=== PATIENT | male | born 1985 | race American Indian/Alaskan Native ===

== ENCOUNTER 2019-05-21 11:37 | Emergency (ER) | payer SELFPAY ==
[2019-05-21 12:17] VITALS: BP 149/80
--- NOTE | 2019-05-21 12:17 | Event Note ---
ED Screening Note Date of service: 05/21/19 Time: 12:15 ED Screening Note: Pt complains generalized abdominal pain and nausea and vomiting x today reports started after eating out this morning denies hematemesis/coffee ground emesis or diarrhea This initial assessment/diagnostic orders/clinical plan/treatment(s) is/are subject to change based on patients health status, clinical progression and re- assessment by fellow clinical providers in the ED. Further treatment and workup at subsequent clinical providers discretion. Patient/guardian urged not to elope from the ED as their condition may be serious if not clinically assessed and managed. Initial orders include: labs
[2019-05-21 13:43] LABS: Hematocrit 41.5 % (35.5-45.6); Hemoglobin 14.4 gm/dl (11.8-15.2); Mean Corpuscular HGB Conc 35 % (32-34); Mean Corpuscular Volume 100 fl (84-94); Platelet Count 247 K/mm3 (140-440); Red Blood Count 4.14 M/mm3 (3.65-5.03); Red Cell Distribution Width 12.9 % (13.2-15.2)
[2019-05-21 13:45] LABS: Bilirubin,Urine NEG (Negative); Blood,Urine NEG (Negative); Color,Urine Yellow (Yellow); Protein,Urine <15 mg/dL mg/dL (Negative); Urobilinogen,Urine < 2.0 mg/dL (<2.0)
[2019-05-21 14:11] LABS: Alanine Aminotransferase 19 units/L (7-56); Albumin 4.6 g/dL (3.9-5); BUN/Creatinine Ratio 18; Blood Urea Nitrogen 16 mg/dL (9-20); Calcium 9.5 mg/dL (8.4-10.2); Hemolysis Index 26
[2019-05-21 14:30] LABS: Band Neutrophils # (Manual) 0.1 K/mm3; Basophils % (Manual) 0 % (0.0-1.8); Platelet Estimate Consistent w Auto; RBC Morphology Normal; Total Cells Counted 100
--- NOTE | 2019-05-21 14:54 | Emergency Department Report ---
Vomiting/Diarrhea - [facility] Chief Complaint: Nausea/Vomiting/Diarrhea Stated Complaint: POSS FOOD POISONING Time Seen by Provider: 05/21/19 12:14 Duration: Today Nausea/Vomiting Severity: Mild Diarrhea Severity: None Pain Severity: None Symptoms: Yes Able to Tolerate Fluids, Yes Recent Unusual Foods, Yes Family w/ Similar Symptoms, No Watery Diarrhea, No Bloody diarrhea, No Fever, No Recent Untreated Water, No Recent use of Antibiotics, No Contacts w/ Similar Symptoms, No Rash, No Hematuria, No Recent URI Symptoms Other History: This is a 33-year-old male presents the ED complaining of abdominal discomfort and vomiting that began shortly after noticing a tejada in his food while he was at a restaurant. Patient states that abdominal cramping is resolved now as well as vomiting. Patient states he still feels a little queasy otherwise no fever no chills no diarrhea no shortness of breath no chest pain ED Review of Systems ROS: Stated complaint: POSS FOOD POISONING Other details as noted in HPI Comment: All other systems reviewed and negative ED Past Medical Hx - Past Medical History Previous Medical History?: No - Surgical History Past Surgical History?: No - Social History Smoking Status: Current Every Day Smoker Substance Use Type: Alcohol - Medications Home Medications: Home Medications Medication Instructions Recorded Confirmed Last Taken Type Ondansetron [Zofran Odt] 4 mg PO Q8HR #20 tab.rapdis 05/21/19 Unknown Rx Vomiting Diarrhea Exam - Exam General: Vital signs noted. No distress. Alert and acting appropriately. HEENT: Yes Moist Mucous Membranes, No Pharyngeal Erythema, No Pharyngeal Exudates, No Rhinorrhea, No Conjuctival Injection, No Frontal Tenderness, No Maxillary Tenderness Neck: No Adenopathy, No Rigidity Lungs: Yes Clear Lung Sounds, Yes Good Air Exchange, No Wheezes, No Stridor, No Cough, No Nasal Flaring, No Retractions, No Use of Accessory Muscles Heart exam: Regular: Yes, Murmur: No, Tachycardia: No Abdomen: Tenderness: No, Peritoneal Signs: No, Distention: No, Hyperactive Bowel sounds: No Skin exam: Rash: No, Edema: No, Normal turgor: Yes Neurologic: Alert and oriented, no deficits. Musculoskeletal: Unremarkable. ED Course Vital Signs 05/21/19 12:14 Temperature 98.9 F Pulse Rate 79 Respiratory 18 Rate Blood Pressure 149/80 O2 Sat by Pulse 99 Oximetry ED Medical Decision Making - Lab Data Result diagrams: 05/21/19 13:20 05/21/19 13:20 Laboratory Last Values WBC 4.0 K/mm3 (4.5-11.0) L 05/21/19 13:20 RBC 4.14 M/mm3 (3.65-5.03) 05/21/19 13:20 Hgb 14.4 gm/dl (11.8-15.2) 05/21/19 13:20 Hct 41.5 % (35.5-45.6) 05/21/19 13:20 MCV 100 fl (84-94) H 05/21/19 13:20 MCH 35 pg (28-32) H 05/21/19 13:20 MCHC 35 % (32-34) H 05/21/19 13:20 RDW 12.9 % (13.2-15.2) L 05/21/19 13:20 Plt Count 247 K/mm3 (140-440) 05/21/19 13:20 Add Manual Diff Complete 05/21/19 13:20 Total Counted 100 05/21/19 13:20 Seg Neuts % (Manual) 44.0 % (40.0-70.0) 05/21/19 13:20 Band Neutrophils % 2.0 % 05/21/19 13:20 Lymphocytes % (Manual) 42.0 % (13.4-35.0) H 05/21/19 13:20 Reactive Lymphs % (Man) 2.0 % 05/21/19 13:20 Monocytes % (Manual) 8.0 % (0.0-7.3) H 05/21/19 13:20 Eosinophils % (Manual) 2.0 % (0.0-4.3) 05/21/19 13:20 Basophils % (Manual) 0 % (0.0-1.8) 05/21/19 13:20 Metamyelocytes % 0 % 05/21/19 13:20 Myelocytes % 0 % 05/21/19 13:20 Promyelocytes % 0 % 05/21/19 13:20 Blast Cells % 0 % 05/21/19 13:20 Nucleated RBC % Not Reportable 05/21/19 13:20 Seg Neutrophils # Man 1.8 K/mm3 (1.8-7.7) 05/21/19 13:20 Band Neutrophils # 0.1 K/mm3 05/21/19 13:20 Lymphocytes # (Manual) 1.7 K/mm3 (1.2-5.4) 05/21/19 13:20 Abs React Lymphs (Man) 0.1 K/mm3 05/21/19 13:20 Monocytes # (Manual) 0.3 K/mm3 (0.0-0.8) 05/21/19 13:20 Eosinophils # (Manual) 0.1 K/mm3 (0.0-0.4) 05/21/19 13:20 Basophils # (Manual) 0.0 K/mm3 (0.0-0.1) 05/21/19 13:20 Metamyelocytes # 0.0 K/mm3 05/21/19 13:20 Myelocytes # 0.0 K/mm3 05/21/19 13:20 Promyelocytes # 0.0 K/mm3 05/21/19 13:20 Blast Cells # 0.0 K/mm3 05/21/19 13:20 WBC Morphology Not Reportable 05/21/19 13:20 Hypersegmented Neuts Not Reportable 05/21/19 13:20 Hyposegmented Neuts Not Reportable 05/21/19 13:20 Hypogranular Neuts Not Reportable 05/21/19 13:20 Smudge Cells Not Reportable 05/21/19 13:20 Toxic Granulation Not Reportable 05/21/19 13:20 Toxic Vacuolation Not Reportable 05/21/19 13:20 Dohle Bodies Not Reportable 05/21/19 13:20 Pelger-Huet Anomaly Not Reportable 05/21/19 13:20 Mauro Rods Not Reportable 05/21/19 13:20 Platelet Estimate Consistent w auto 05/21/19 13:20 Clumped Platelets Not Reportable 05/21/19 13:20 Plt Clumps, EDTA Not Reportable 05/21/19 13:20 Large Platelets Not Reportable 05/21/19 13:20 Giant Platelets Not Reportable 05/21/19 13:20 Platelet Satelliting Not Reportable 05/21/19 13:20 Plt Morphology Comment Not Reportable 05/21/19 13:20 RBC Morphology Normal 05/21/19 13:20 Dimorphic RBCs Not Reportable 05/21/19 13:20 Polychromasia Not Reportable 05/21/19 13:20 Hypochromasia Not Reportable 05/21/19 13:20 Poikilocytosis Not Reportable 05/21/19 13:20 Anisocytosis Not Reportable 05/21/19 13:20 Microcytosis Not Reportable 05/21/19 13:20 Macrocytosis Not Reportable 05/21/19 13:20 Spherocytes Not Reportable 05/21/19 13:20 Pappenheimer Bodies Not Reportable 05/21/19 13:20 Sickle Cells Not Reportable 05/21/19 13:20 Target Cells Not Reportable 05/21/19 13:20 Tear Drop Cells Not Reportable 05/21/19 13:20 Ovalocytes Not Reportable 05/21/19 13:20 Helmet Cells Not Reportable 05/21/19 13:20 Vieyra-Entiat Bodies Not Reportable 05/21/19 13:20 [place] Rings Not Reportable 05/21/19 13:20 Vaiden Cells Not Reportable 05/21/19 13:20 Bite Cells Not Reportable 05/21/19 13:20 Crenated Cell Not Reportable 05/21/19 13:20 Elliptocytes Not Reportable 05/21/19 13:20 Acanthocytes (Spur) Not Reportable 05/21/19 13:20 Rouleaux Not Reportable 05/21/19 13:20 Hemoglobin C Crystals Not Reportable 05/21/19 13:20 Schistocytes Not Reportable 05/21/19 13:20 Malaria parasites Not Reportable 05/21/19 13:20 Marvin Bodies Not Reportable 05/21/19 13:20 Hem Pathologist Commnt No 05/21/19 13:20 Sodium 140 mmol/L (137-145) 05/21/19 13:20 Potassium 4.4 mmol/L (3.6-5.0) 05/21/19 13:20 Chloride 103.1 mmol/L (98-107) 05/21/19 13:20 Carbon Dioxide 22 mmol/L (22-30) 05/21/19 13:20 Anion Gap 19 mmol/L 05/21/19 13:20 BUN 16 mg/dL (9-20) 05/21/19 13:20 Creatinine 0.9 mg/dL (0.8-1.5) 05/21/19 13:20 Estimated GFR > 60 ml/min 05/21/19 13:20 BUN/Creatinine Ratio 18 % 05/21/19 13:20 Glucose 106 mg/dL (75-100) H 05/21/19 13:20 Calcium 9.5 mg/dL (8.4-10.2) 05/21/19 13:20 Total Bilirubin 0.40 mg/dL (0.1-1.2) 05/21/19 13:20 AST 25 units/L (5-40) 05/21/19 13:20 ALT 19 units/L (7-56) 05/21/19 13:20 Alkaline Phosphatase 63 units/L (35-129) 05/21/19 13:20 Total Protein 7.4 g/dL (6.3-8.2) 05/21/19 13:20 Albumin 4.6 g/dL (3.9-5) 05/21/19 13:20 Albumin/Globulin Ratio 1.6 % 05/21/19 13:20 Lipase 52 units/L (13-60) 05/21/19 13:20 Urine Color Yellow (Yellow) 05/21/19 Unknown Urine Turbidity Clear (Clear) 05/21/19 Unknown Urine pH 5.0 (5.0-7.0) 05/21/19 Unknown Ur Specific [place] 1.016 (1.003-1.030) 05/21/19 Unknown Urine Protein <15 mg/dl mg/dL (Negative) 05/21/19 Unknown Urine Glucose (UA) Neg mg/dL (Negative) 05/21/19 Unknown Urine Ketones Neg mg/dL (Negative) 05/21/19 Unknown Urine Blood Neg (Negative) 05/21/19 Unknown Urine Nitrite Neg (Negative) 05/21/19 Unknown Urine Bilirubin Neg (Negative) 05/21/19 Unknown Urine Urobilinogen < 2.0 mg/dL (<2.0) 05/21/19 Unknown Ur Leukocyte Esterase Neg (Negative) 05/21/19 Unknown Urine WBC (Auto) 4.0 /HPF (0.0-6.0) 05/21/19 Unknown Urine RBC (Auto) 2.0 /HPF (0.0-6.0) 05/21/19 Unknown U Epithel Cells (Auto) < 1.0 /HPF (0-13.0) 05/21/19 Unknown - Medical Decision Making 33-year-old male presents with acute vomiting most likely due to food poisoning. All labs are within normal limits. Discussed findings with the patient. Discussed with patient to increase water intake to 8 to 10 glasses/day to flush out toxins. Discussed BRAT diet with the patient. Vital signs are normal patient is in no a cute distress. Patient had no active vomiting in the ED. Critical care attestation.: If time is entered above; I have spent that time in minutes in the direct care of this critically ill patient, excluding procedure time. ED Disposition Clinical Impression: Acute gastroenteritis, Gastroenteritis due to food toxin Disposition: DC- TO HOME OR SELFCARE Is pt being admited?: No Does the pt Need Aspirin: No Condition: Stable Instructions: Gastroenteritis (ED), Acute Nausea and Vomiting (ED) Additional Instructions: Make sure to follow up with the primary care physician as discussed. Take all your medications as you've been prescribed. If you have any worsening symptoms or develop new symptoms please return to ED immediately. Prescriptions: Ondansetron [Zofran Odt] 4 mg PO Q8HR #20 tab.rapdis Referrals: PRIMARY CARE, [Primary Care Provider] - 3-5 Days [facility] [Outside] - 3-5 Days [facility] [Outside] - 3-5 Days Forms: Accompanied Note, Work/School Release Form(ED) Time of Disposition: 14:54
== END 2019-05-21 15:15 | disposition home or self-care (01) ==
LOC: EDBD → ED 11:37
DX: A05.9 Bacterial foodborne intoxication, unspecified (principal); F17.200 Nicotine dependence, unspecified, uncomplicated; Z79.899 Other long term (current) drug therapy; Z91.018 Allergy to other foods
CPT/HCPCS: 36415; 80053; 81001; 83690; 85007; 85025; 99283